=== PATIENT | male | born 2000 ===

== ENCOUNTER 2019-04-26 11:09 | Emergency (ER) | payer BC ==
[2019-04-26 11:17] VITALS: BP 109/67
--- NOTE | 2019-04-26 11:54 | ED ---
Respiratory - HPI Summary HPI Summary: 18 yo WM p/w sore throat, cough, nasal congestion x 2-3 days, pt tried flonase, afrin and Emergen-C w/o much relief, denies pleuritic CP - History of Current Complaint Chief Complaint: UCGeneralIllness Stated Complaint: COUGH Time Seen by Provider: 04/26/19 11:21 Hx Obtained From: Patient Onset/Duration: Sudden Onset Initial Severity: Moderate Current Severity: Moderate Pain Intensity: 5 Character: Cough (Nonproductive) Sputum Amount: None Aggravating Factor(s): URI - Allergy/Home Medications Allergies/Adverse Reactions: Allergies Allergy/AdvReac Type Severity Reaction Status Date / Time No Known Allergies Allergy Verified 04/26/19 11:17 PMH/Surg Hx/FS Hx/Imm Hx Previously Healthy: Yes Endocrine/Hematology History: Denies: Hx Diabetes, Hx Thyroid Disease Cardiovascular History: Denies: Hx Hypertension Respiratory History: Denies: Hx Asthma, Hx Chronic Obstructive Pulmonary Disease (COPD) GI History: Denies: Hx Ulcer Infectious Disease History: No Infectious Disease History: Denies: Hx Hepatitis, Hx Human Immunodeficiency Virus (HIV), Traveled Outside the in Last 30 Days - Social History Alcohol Use: Rare Substance Use Type: Reports: Marijuana Smoking Status (MU): Former Smoker Review of Systems Constitutional: Negative Eyes: Negative Positive: Sore Throat, Nasal Discharge, Other - nasal congestion Cardiovascular: Negative Positive: Cough Gastrointestinal: Negative Genitourinary: Negative Musculoskeletal: Negative Skin: Negative Neurological: Negative All Other Systems Reviewed And Are Negative: Yes Physical Exam - Summary Physical Exam Summary: Vital Signs Reviewed: Yes Eye Exam: Normal Eyes: Positive: Conjunctiva Clear ENT: Positive: B/L tonsilar erythema w/o exudates Neck: Positive: Supple Respiratory Exam: Normal Respiratory: Positive: Lungs clear Cardiovascular Exam: Normal Cardiovascular: Positive: RRR Abdomen: NT/ND Musculoskeletal Exam: Normal Neurological Exam: Normal Psychological Exam: Normal Skin Exam: Normal Vital Signs On Initial Exam: Initial Vitals Temp Pulse Resp BP Pulse Ox 36.8 C 66 18 109/67 99 04/26/19 11:12 04/26/19 11:12 04/26/19 11:12 04/26/19 11:12 04/26/19 11:12 Vital Signs Reviewed: Yes Diagnostics - Vital Signs Vital Signs Temp Pulse Resp BP Pulse Ox 04/26/19 11:12 36.8 C 66 18 109/67 99 - Laboratory Lab Statement: Any lab studies that have been ordered have been reviewed, and results considered in the medical decision making process. Disposition - Diagnoses Provider Diagnoses: URI, acute, URI with cough and congestion Discharge ED - Sign-Out/Discharge Documenting (check all that apply): Patient Departure All imaging exams completed and their final reports reviewed: No Studies - Discharge Plan Condition: Stable Disposition: HOME Prescriptions: Guaifenesin/Dextromethorphan [Mucinex Dm ER 600-30 mg Tablet] 1 each PO BID 7 Days #14 [id number] Patient Education Materials: Upper Respiratory Infection (ED) - Billing Disposition and Condition Condition: STABLE Disposition: Home
== END 2019-04-26 12:11 | disposition home or self-care (01) ==
LOC: UCEAST 11:09
DX: J06.9 Acute upper respiratory infection, unspecified (principal); R05 Cough; R09.81 Nasal congestion; Z87.891 Personal history of nicotine dependence
CPT/HCPCS: 87651; 99202; G0463

== ENCOUNTER 2019-06-03 00:09 | Emergency (ER) | payer BC ==
[2019-06-03 02:35] LABS: ABS Eosinophils 0.1 10^3/ul (0-0.6); ABS Lymphocytes 2.4 10^3/ul (1.0-4.8); ABS Monocytes 0.8 10^3/ul (0-0.8); ABS Neutrophils 7.8 10^3/ul (1.5-7.7); Eosinophil % 1.3 %; Hematocrit 46 % (42-52); Hemoglobin 15.8 g/dL (14.0-18.0); Lymphocyte % 21.2 %; Mean Corpuscular HGB Conc 34 g/dL (31-36); Mean Corpuscular Hemoglobin 29 pg (27-31); Mean Corpuscular Volume 86 fL (80-94); Mean Platelet Volume 7.6 fL (7.4-10.4); Nucleated Red Blood Cells % 0.1; Platelet Count 235 10^3/uL (150-450); Red Blood Count 5.39 10^6 /uL (4.18-5.48); Red Cell Distribution Width 13 % (10-15); White Blood Count 11.2 10^3/uL (3.5-10.8)
[2019-06-03 02:54] LABS: ALT 18 U/L (7-52); AST 14 U/L (13-39); Albumin 4.4 g/dL (3.2-5.2); Albumin/Globulin Ratio 1.5 (1-3); Alkaline Phosphatase 73 U/L (34-104); Anion Gap 5 mmol/L (2-11); BUN/Creatinine Ratio 15.5 (8-20); Blood Urea Nitrogen 15 mg/dL (6-24); CO2 Carbon Dioxide 28 mmol/L (22-32); Calcium 9.7 mg/dL (8.6-10.3); Chloride 103 mmol/L (101-111); EGFR African American 119.4 (>60); EGFR Non-African American 98.7 (>60); Globulin 2.9 g/dL (2-4); Glucose 107 mg/dL (70-100); Magnesium 1.8 mg/dL (1.9-2.7); Potassium 3.5 mmol/L (3.5-5.0); Sodium 136 mmol/L (135-145); Total Protein 7.3 g/dL (6.4-8.9)
[2019-06-03 02:59] LABS: Alcohol < 10 mg/dL (<10)
[2019-06-03 03:07] LABS: INR 1.15 (0.82-1.09)
[2019-06-03 03:14] LABS: TSH (Thyroid Stimulating Horm) 0.92 mcIU/mL (0.34-5.60)
--- NOTE | 2019-06-03 03:24 | ED ---
Syncope/Near Syncope - HPI Summary HPI Summary: Patient is a 18 y/o M presenting to the ED for a chief complaint of syncope on 06/03/19. Patient is present with a friend. Patient states that he was in his bed watching TV when he felt he would have a syncopal episode. Patient had a syncopal episode with spontaneous resolution. After the syncopal episode, patient had a laceration to the right side of the nose, right hip, and right buttocks. Patient denies fever or headache. Patient believes he sat on a piece of glass during the syncopal episode. Patient is unsure when he last had a tetanus vaccination. Allergies noted. Medications reviewed. - History Of Current Complaint Chief Complaint: EDSyncope Time Seen by Provider: 06/03/19 01:56 Hx Obtained From: Patient Onset/Duration: Sudden Onset, Resolved Timing: Minutes Context: Loss Of Consciousness Activity At Onset: At Rest Alleviating Factor(s): Spontaneous Resolution Associated Signs And Symptoms: Negative - Allergies/Home Medications Allergies/Adverse Reactions: Allergies Allergy/AdvReac Type Severity Reaction Status Date / Time No Known Allergies Allergy Verified 06/03/19 02:11 Home Medications: Home Medications NK [No Home Medications Reported] 06/03/19 [History Confirmed 06/03/19] PMH/Surg Hx/FS Hx/Imm Hx Previously Healthy: Yes Endocrine/Hematology History: Denies: Hx Diabetes, Hx Thyroid Disease Cardiovascular History: Denies: Hx Hypercholesterolemia, Hx Hypertension Respiratory History: Denies: Hx Asthma, Hx Chronic Obstructive Pulmonary Disease (COPD) GI History: Denies: Hx Ulcer Sensory History: Denies: Hx Legally Blind, Hx Deafness Opthamlomology History: Denies: Hx Legally Blind EENT History: Denies: Hx Deafness - Surgical History Surgical History: None Surgery Procedure, Year, and Place: None Infectious Disease History: No Infectious Disease History: Denies: Hx Hepatitis, Hx Human Immunodeficiency Virus (HIV), Traveled Outside the [place] in Last 30 Days - Family History Known Family History: Negative: Hypertension, Diabetes - Social History Occupation: Student Lives: Alone Alcohol Use: Rare Hx Substance Use: No Substance Use Type: Reports: None Hx Tobacco Use: Yes Smoking Status (MU): Former Smoker Review of Systems - ROS Summary Review of Systems Summary: NK [No Home Medications Reported] 06/03/19 [History Confirmed 06/03/19] Negative: Fever Positive: Other - Positive laceration to right of the nose, right hip, and right buttocks Positive: Syncope. Negative: Headache All Other Systems Reviewed And Are Negative: Yes Physical Exam - Summary Physical Exam Summary: General: Well-developed, Well-nourished MALE. No acute distress. HEENT: Normocephalic, Atraumatic. Eyes: Conjuctiva normal, PERRL. Ears: TMs within normal limits. Nares: (-) discharge, (-) erythema. Oropharynx: Clear, mucous membranes moist, (-) exudates. Neck: Soft, FROM, (-) lymphadenopathy, (-) thyromegaly, (-) JVD. Cardiovascular: Normal sinus rhythm, (-) murmur. Lungs: Clear to auscultation bilaterally (-) wheezes, (-) rales, (-) rhonchi. Abdomen: Soft, non-tender, non-distended, (-) organomegaly, normal bowel sounds. Back: (-) CVA tenderness Extremities: No edema. Skin: Warm, dry, (-) rash. 1.4 cm laceration right of the nose, no active bleeding, laceration on buttocks. Neuro: Alert and oriented x3, no focal deficits. Psychiatric: Mood normal, affect normal. Triage Information Reviewed: Yes Vital Signs On Initial Exam: Initial Vitals Temp Pulse Resp BP Pulse Ox 98.4 F 86 15 134/70 99 06/03/19 00:11 06/03/19 00:11 06/03/19 00:11 06/03/19 00:11 06/03/19 00:11 Vital Signs Reviewed: Yes - Caro Coma Scale Best Eye Response: 4 - Spontaneous Best Motor Response: 6 - Obeys Commands Best Verbal Response: 5 - Oriented Coma Scale Total: 15 Procedures - Sedation Patient Received Moderate/Deep Sedation with Procedure: No - Laceration/Wound Repair 2 Location: face - Right side of nose Description: Linear Anesthesia: Local Length, Depth and Shape: 1.4 cm length, 2 mm depth Laceration/Wound Explored: clean Closure: Single Layer - 3 Debridement: minimal Suture Type: Nylon Number of Sutures: 3 Layer Closure?: No Sterile Dressing Applied?: Yes 1 Location: Other - Right buttock Description: Linear Anesthesia: Local Length, Depth and Shape: 5 cm length, 6 mm depth Laceration/Wound Explored: clean Closure: Single Layer - 11 Debridement: minimal Suture Type: Nylon Number of Sutures: 11 Layer Closure?: No Sterile Dressing Applied?: Yes Diagnostics - Vital Signs Vital Signs Temp Pulse Resp BP Pulse Ox 06/03/19 02:00 58 13 96 06/03/19 01:54 58 98 06/03/19 01:52 60 125/68 98 06/03/19 00:11 98.4 F 86 15 134/70 99 - Laboratory Lab Results: Lab Results 06/03/19 06/03/19 06/03/19 Range/Units 02:26 02:27 02:27 WBC 11.2 H (3.5-10.8) 10^3/uL RBC 5.39 (4.18-5.48) 10^6 /uL Hgb 15.8 (14.0-18.0) g/dL Hct 46 (42-52) % MCV 86 (80-94) fL MCH 29 (27-31) pg MCHC 34 (31-36) g/dL RDW 13 (10-15) % Plt Count 235 (150-450) 10^3/uL MPV 7.6 (7.4-10.4) fL Neut % (Auto) 70.1 % Lymph % (Auto) 21.2 % [place] % (Auto) 7.0 % Eos % (Auto) 1.3 % Baso % (Auto) 0.4 % Absolute Neuts (auto) 7.8 H (1.5-7.7) 10^3/ul Absolute Lymphs (auto) 2.4 (1.0-4.8) 10^3/ul Absolute Monos (auto) 0.8 (0-0.8) 10^3/ul Absolute Eos (auto) 0.1 (0-0.6) 10^3/ul Absolute Basos (auto) 0.0 (0-0.2) 10^3/ul Absolute Nucleated RBC 0.0 10^3/ul Nucleated RBC % 0.1 INR (Anticoag Therapy) 1.15 H (0.82-1.09) Sodium 136 (135-145) mmol/L Potassium 3.5 (3.5-5.0) mmol/L Chloride 103 (101-111) mmol/L Carbon Dioxide 28 (22-32) mmol/L Anion Gap 5 (2-11) mmol/L BUN 15 (6-24) mg/dL Creatinine 0.97 (0.67-1.17) mg/dL Est GFR ( Amer) 119.4 (>60) Est GFR (Non-Af Amer) 98.7 (>60) BUN/Creatinine Ratio 15.5 (8-20) Glucose 107 H (70-100) mg/dL Lactic Acid (0.5-2.0) mmol/L Calcium 9.7 (8.6-10.3) mg/dL Magnesium 1.8 L (1.9-2.7) mg/dL Total Bilirubin 0.50 (0.2-1.0) mg/dL AST 14 (13-39) U/L ALT 18 (7-52) U/L Alkaline Phosphatase 73 (34-104) U/L Troponin I 0.00 (<0.04) ng/mL Total Protein 7.3 (6.4-8.9) g/dL Albumin 4.4 (3.2-5.2) g/dL Globulin 2.9 (2-4) g/dL Albumin/Globulin Ratio 1.5 (1-3) TSH 0.92 (0.34-5.60) mcIU/mL Serum Alcohol < 10 (<10) mg/dL 06/03/19 Range/Units 02:27 WBC (3.5-10.8) 10^3/uL RBC (4.18-5.48) 10^6 /uL Hgb (14.0-18.0) g/dL Hct (42-52) % MCV (80-94) fL MCH (27-31) pg MCHC (31-36) g/dL RDW (10-15) % Plt Count (150-450) 10^3/uL MPV (7.4-10.4) fL Neut % (Auto) % Lymph % (Auto) % [place] % (Auto) % Eos % (Auto) % Baso % (Auto) % Absolute Neuts (auto) (1.5-7.7) 10^3/ul Absolute Lymphs (auto) (1.0-4.8) 10^3/ul Absolute Monos (auto) (0-0.8) 10^3/ul Absolute Eos (auto) (0-0.6) 10^3/ul Absolute Basos (auto) (0-0.2) 10^3/ul Absolute Nucleated RBC 10^3/ul Nucleated RBC % INR (Anticoag Therapy) (0.82-1.09) Sodium (135-145) mmol/L Potassium (3.5-5.0) mmol/L Chloride (101-111) mmol/L Carbon Dioxide (22-32) mmol/L Anion Gap (2-11) mmol/L BUN (6-24) mg/dL Creatinine (0.67-1.17) mg/dL Est GFR ( Amer) (>60) Est GFR (Non-Af Amer) (>60) BUN/Creatinine Ratio (8-20) Glucose (70-100) mg/dL Lactic Acid 0.5 (0.5-2.0) mmol/L Calcium (8.6-10.3) mg/dL Magnesium (1.9-2.7) mg/dL Total Bilirubin (0.2-1.0) mg/dL AST (13-39) U/L ALT (7-52) U/L Alkaline Phosphatase (34-104) U/L Troponin I (<0.04) ng/mL Total Protein (6.4-8.9) g/dL Albumin (3.2-5.2) g/dL Globulin (2-4) g/dL Albumin/Globulin Ratio (1-3) TSH (0.34-5.60) mcIU/mL Serum Alcohol (<10) mg/dL Result Diagrams: 06/03/19 02:26 06/03/19 02:27 Lab Statement: Any lab studies that have been ordered have been reviewed, and results considered in the medical decision making process. - CT Brain CT CT Interpretation Completed By: Radiologist Summary of CT Findings: Brain CT IMPRESSION: No traumatic intracranial abnormalities. Reviewed by Dr. Sauceda. - EKG 02:06 Cardiac Rate: NL - 60 BPM EKG Rhythm: Sinus Rhythm ST Segment: Normal Ectopy: None Summary of EKG Findings: EKG at 02:06 reveals normal sinus rhythm with rate of 60 BPM, no acute changes, no ischemic changes, AK prolonged, no STEMI. This EKG was reviewed and interpreted by Dr. Sauceda. Re-Evaluation - Re-Evaluation First Re-Evaluation Time: 05:19 Change: Improved Comment: I have discussed results with the patient and syncope is resolved. Discussed symptoms that warrant immediate return to ED. Course/Dx Course Of Treatment: 18-year-old male with episode of dizziness and syncope falling off the bed. Landing on a glass. The glass broke and sustained a laceration to his right nose and right buttock. He states he feels fine at this time other than the lacerations. Tetanus up-to-date. Workup including CT head negative. Patient repaired as above. Wound care outlined in written discharge instructions. Follow-up with PCP in 5-7 days for suture removal of the face. 7-10 days for suture removal of the buttock. Follow-up sooner for any worsening symptoms. - Diagnoses Provider Diagnoses: Laceration of buttock, Laceration of face, Syncope Discharge ED - Sign-Out/Discharge Documenting (check all that apply): Patient Departure - Discharge - Discharge Plan Condition: Stable Disposition: HOME Patient Education Materials: Laceration (ED), Syncope (ED) Referrals: [facility] [Outside] Additional Instructions: Please follow up with your [facility] within three days. Please return to ED for any new or worsening symptoms. - Billing Disposition and Condition Condition: STABLE Disposition: Home - Attestation Statements Document Initiated by Scribe: Yes Documenting Scribe: Giselle Hunter Provider For Whom Lisa is Documenting (Include Credential): Merlyn Sauceda MD Scribe Attestation: Giselle Tarango, scribed for Merlyn Sauceda MD on 06/03/19 at 0600. Scribe Documentation Reviewed: Yes Provider Attestation: The documentation as recorded by the Giselle laboy accurately reflects the service I personally performed and the decisions made by me, Merlyn Sauceda MD Status of Scribe Document: Viewed
[2019-06-03] MEDS ORDERED: NS 0.9% 1000 ML** 1,000 ML IV ONE (03:28)
[2019-06-03 03:56] LABS: Urine Appearance Clear; Urine Bilirubin Negative (Negative); Urine Blood Negative (Negative); Urine Color Yellow; Urine Glucose Negative (Negative); Urine Ketones Negative (Negative); Urine Nitrite Negative (Negative); Urine Protein Negative (Negative); Urine Specific Gravity 1.013 (1.010-1.030); Urine Urobilinogen Negative (Negative)
[2019-06-03 04:23] LABS: Urine Benzodiazepine Screen None Detected (None Detect); Urine Opiates Screen None Detected (None Detect)
[2019-06-03] MEDS ORDERED: Lidocaine 1% INJ* 10 MG/ML 30 ML SDV ONE (04:45)
[2019-06-03 06:01] VITALS: BP 122/74
== END 2019-06-03 05:38 | disposition home or self-care (01) ==
LOC: ED 00:09
DX: S31.811A Laceration without foreign body of right buttock, initial encounter (principal); S01.21XA Laceration without foreign body of nose, initial encounter; W18.02XA Striking against glass with subsequent fall, initial encounter; Y92.003 Bedroom of unspecified non-institutional (private) residence as the place of occurrence of the external cause; R55 Syncope and collapse; Z87.891 Personal history of nicotine dependence
CPT/HCPCS: 12002; 12011; 36415; 70450; 80053; 80307; 80320; 81003; 83605; 83735; 84443; 84484; 85025; 85610; 93005; 96360; 96361; 99284; G0480